=== PATIENT | female | born 1950 | race Caucasian/White ===

== ENCOUNTER → 2018-04-29 | Outpatient (CLI) | payer MEDICARE, OTHER ==
[~2018-04-29] MED LIST: AMBIEN 10 MG TA10 MG PO; ASPIRIN EC81 M1 PO; AUGMENTIN 875875 M1; BIOTIN10000 MC1 PO; ENDOCET 5-3251 EACH; FISH OIL 1,0001 EAC7 PO; FOLIC ACID1 MG PO; GABAPENTIN100 MG PO; LEXAPRO 10 MG T10 M1 PO; MAGOX 400400 MG PO; METHOTREXATE 22.5 M1 PO; MOTION RELIEF25 MG PO; MULTIVITAMINS PO; MULTIVITAMINS1 EAC7; OMEPRAZOLE20 M2 PO; TRAMADOL 50 MG50 MG PO; UNASYN 3 GM VIAL3 G1; VITAMIN D3400 UNI1 PO; ZOFRAN ODT4 MG PO
== END ==
LOC: M.RAD 09:20
DX: Z12.31 Encounter for screening mammogram for malignant neoplasm of breast (principal)

== ENCOUNTER → 2019-05-03 | Outpatient (CLI) | payer MEDICARE | LOC: M.RAD 03-04 09:00 | DX: Z12.31 Encounter for screening mammogram for malignant neoplasm of breast (principal); M85.89 Other specified disorders of bone density and structure, multiple sites; Z78.0 Asymptomatic menopausal state; Z88.8 Allergy status to other drugs, medicaments and biological substances ==

== ENCOUNTER → 2020-04-17 | Outpatient (CLI) | payer MEDICARE | LOC: M.MRI 13:00 | PROVIDERS: ATTEND Family Medicine | DX: G31.9 Degenerative disease of nervous system, unspecified (principal); R41.0 Disorientation, unspecified; Z85.3 Personal history of malignant neoplasm of breast; R41.3 Other amnesia ==

== ENCOUNTER → 2020-08-16 | Outpatient (CLI) | payer MEDICARE | LOC: M.RAD 09:56 | PROVIDERS: ATTEND Family Medicine | DX: Z12.31 Encounter for screening mammogram for malignant neoplasm of breast (principal) ==